=== PATIENT | male | born 1990 | race Caucasian/White ===

== ENCOUNTER 2017-10-04 23:36 | Emergency (ER) | payer OTHER ==
[2017-10-04] MEDS ORDERED: SODIUM CHLORIDE 1,000 ML IV STA (23:44)
[2017-10-04 23:51] VITALS: BP 129/73; PULSE 102; TEMP 98.6; BMI 28.1
[2017-10-04] MEDS ORDERED: ONDANSETRON 4 MG/2 ML VIAL IVPB ONE (23:54)
[2017-10-05 00:22] LABS: BASOPHIL 0.8 % (0-2.0); EOSINOPHIL 2.8 % (0-4.5); MCH 30.2 pg (25.7-33.7); MCHC 33.5 g/dl (32.0-35.9); MEAN CELL VOLUME 90.3 fl (80-96); MEAN PLT VOLUME 8.3 fl (7.5-11.1); NEUTROPHILS 57.7 % (42.8-82.8); PLATELET COUNT 267 K/MM3 (134-434); WHITE BLOOD COUNT 8.6 K/mm3 (4.0-10.0)
[2017-10-05] MEDS ORDERED: ONDANSETRON 4 MG/2 ML VIAL ONE (00:35)
[2017-10-05 00:47] LABS: ALBUMIN 4.2 g/dl (3.4-5.0); ANION GAP 11 (8-16); CALCIUM 8.5 mg/dL (8.5-10.1); CO2 23 mmol/L (21-32); GLUCOSE,RANDOM 135 mg/dL (74-106); SGOT/AST 20 U/L (15-37); SGPT/ALT 45 U/L (12-78)
--- NOTE | 2017-10-05 00:48 | PDOC ---
History of Present Illness - General History Source: Patient, EMS, Friend Exam Limitations: Intoxication - History of Present Illness Initial Comments: 10/05/17 00:49 The patient is a 27 year old male, with no significant past medical history, who presents to the emergency department [facility] for alcohol intoxication. The patient reports he was at a holiday libertarian with his friends, where he had several drinks of vodka, followed by wine. Patient reports walking to the bathroom unsteadily, and his friend followed him. As per friend, patient passed out several times on the bathroom floor, but the friend was able to help him down. Patient denies any head trauma, changes in vision, or any other trauma. EMS was activated and during transport patient experienced several episodes of nausea and vomiting(non bloody/ non bilious), but denies any abdominal pain, diarrhea, or constipation. Patient denies any chest pain, shortness of breath, diaphoresis, or palpitations. He denies any fever or chills. Allergies: NKDA Past Surgical History: None reported Social History: Non smoker. No ETOH or recreational drug use. <Rafa Miranda - Last Filed: 10/05/17 00:49> - General History Source: Patient, EMS, Friend Exam Limitations: Intoxication <Ajay Ching - Last Filed: 10/05/17 02:48> <Teresa Navarro - Last Filed: 10/05/17 03:32> - General Chief Complaint: Alcohol intoxication Stated Complaint: INTOX Time Seen by Provider: 10/04/17 23:43 Past History <Rafa Miranda - Last Filed: 10/05/17 00:49> - Suicide/Smoking/Psychosocial Hx Smoking History: Unknown if ever smoked Have you smoked in the past 12 months: No Information on smoking cessation initiated: No Hx Alcohol Use: Yes Drug/Substance Use Hx: No <Ajay Ching - Last Filed: 10/05/17 02:48> <Teresa Navarro - Last Filed: 10/05/17 03:32> - Past Medical History Allergies/Adverse Reactions: Allergies Allergy/AdvReac Type Severity Reaction Status Date / Time No Allergy Information Allergy Verified 10/04/17 23:47 Available Home Medications: Ambulatory Orders Unobtainable [Unobtainable] 10/04/17 Review of Systems - Review of Systems Able to Perform ROS?: Yes Comments:: 10/05/17 00:49 GENERAL/CONSTITUTIONAL: Yes inebriated. No fever or chills. No weakness. HEAD, EYES, EARS, NOSE AND THROAT: No change in vision. No ear pain or discharge. No sore throat. CARDIOVASCULAR: No chest pain or shortness of breath. RESPIRATORY: No cough, wheezing, or hemoptysis. GASTROINTESTINAL: Yes nausea, vomiting. No diarrhea or constipation. GENITOURINARY: No dysuria, frequency, or change in urination. MUSCULOSKELETAL: No joint or muscle swelling or pain. No neck or back pain. SKIN: No rash NEUROLOGIC: Yes loss of consciousness. No headache, vertigo, or change in strength/sensation. ENDOCRINE: No increased thirst. No abnormal weight change. HEMATOLOGIC/LYMPHATIC: No anemia, easy bleeding, or history of blood clots. ALLERGIC/IMMUNOLOGIC: No hives or skin allergy. <Nitza Mirandaomilsblair - Last Filed: 10/05/17 00:49> *Physical Exam - Vital Signs Last Vital Signs Temp Pulse Resp BP Pulse Ox 98.6 F 102 H 16 129/73 93 L 10/04/17 23:47 10/04/17 23:47 10/04/17 23:47 10/04/17 23:47 10/04/17 23:47 - Physical Exam Comments: 10/05/17 00:50 GENERAL: Patient is awake and able to answer yes or no questions. Appears intoxicated. HEAD: No signs of trauma EYES: PERRLA, EOMI, sclera anicteric, conjunctiva clear ENT: Auricles normal inspection, hearing grossly normal, nares patent, oropharynx clear without exudates. Moist mucosa NECK: Normal ROM, supple, no lymphadenopathy, JVD, or masses LUNGS: Breath sounds equal, clear to auscultation bilaterally. No wheezes, and no crackles HEART: Regular rate and rhythm, normal S1 and S2, no murmurs, rubs or gallops ABDOMEN: Soft, nontender, normoactive bowel sounds. No guarding, no rebound. No masses EXTREMITIES: Normal range of motion, no edema. No clubbing or cyanosis. No cords, erythema, or tenderness NEUROLOGICAL: Cranial nerves II through XII grossly intact. SKIN: Warm, Dry, normal turgor, no rashes or lesions noted. <Rafa Miranda - Last Filed: 10/05/17 00:49> - Vital Signs Last Vital Signs Temp Pulse Resp BP Pulse Ox 98.6 F 102 H 16 129/73 93 L 10/04/17 23:47 10/04/17 23:47 10/04/17 23:47 10/04/17 23:47 10/04/17 23:47 <Ajay Ching - Last Filed: 10/05/17 02:48> - Vital Signs Last Vital Signs Temp Pulse Resp BP Pulse Ox 98.6 F 102 H 16 129/73 93 L 10/04/17 23:47 10/04/17 23:47 10/04/17 23:47 10/04/17 23:47 10/04/17 23:47 <Teresa Navarro - Last Filed: 10/05/17 03:32> ED Treatment Course - LABORATORY CBC & Chemistry Diagram: 10/05/17 00:00 10/05/17 00:00 - ADDITIONAL ORDERS Additional order review: Laboratory Results 10/05/17 00:00 Alcohol, Quantitative 233.9 H* 10/05/17 00:00 RBC 4.99 MCV 90.3 MCHC 33.5 RDW 13.0 MPV 8.3 Neutrophils % 57.7 Lymphocytes % 25.5 Monocytes % 13.2 H Eosinophils % 2.8 Basophils % 0.8 - Medications Given in the ED: ED Medications Discontinued Medications Generic Name Dose Route Start Last Admin Trade Name Freq PRN Reason Stop Dose Admin Sodium Chloride 1,000 mls @ 1,000 mls/hr 10/04/17 23:44 10/05/17 00:34 Normal Saline - IV 10/05/17 00:43 1,000 mls/hr ASDIR STA Administration Ondansetron HCl 4 mg 10/04/17 23:54 10/05/17 00:34 Zofran Injection IVPB 10/04/17 23:55 4 mg ONCE ONE Administration <Rafa Miranda - Last Filed: 10/05/17 00:49> - LABORATORY CBC & Chemistry Diagram: 10/05/17 00:00 10/05/17 00:00 - ADDITIONAL ORDERS Additional order review: 10/05/17 00:00 RBC 4.99 MCV 90.3 MCHC 33.5 RDW 13.0 MPV 8.3 Neutrophils % 57.7 Lymphocytes % 25.5 Monocytes % 13.2 H Eosinophils % 2.8 Basophils % 0.8 - Medications Given in the ED: ED Medications Discontinued Medications Generic Name Dose Route Start Last Admin Trade Name Emerson PRN Reason Stop Dose Admin Sodium Chloride 1,000 mls @ 1,000 mls/hr 10/04/17 23:44 10/05/17 00:34 Normal Saline - IV 10/05/17 00:43 1,000 mls/hr ASDIR STA Administration Ondansetron HCl 4 mg 10/04/17 23:54 10/05/17 00:34 Zofran Injection IVPB 10/04/17 23:55 4 mg ONCE ONE Administration <Ajay Ching - Last Filed: 10/05/17 02:48> - LABORATORY CBC & Chemistry Diagram: 10/05/17 00:00 10/05/17 00:00 - ADDITIONAL ORDERS Additional order review: Laboratory Results 10/05/17 10/05/17 00:00 00:00 Sodium 137 Potassium 3.4 L Chloride 103 Carbon Dioxide 23 Anion Gap 11 BUN 13 Creatinine 1.0 Creat Clearance w eGFR > 60 Random Glucose 135 H Calcium 8.5 Total Bilirubin 0.8 AST 20 ALT 45 Alkaline Phosphatase 93 Total Protein 7.6 Albumin 4.2 Lipase 111 Alcohol, Quantitative 233.9 H* 10/05/17 00:00 RBC 4.99 MCV 90.3 MCHC 33.5 RDW 13.0 MPV 8.3 Neutrophils % 57.7 Lymphocytes % 25.5 Monocytes % 13.2 H Eosinophils % 2.8 Basophils % 0.8 - Medications Given in the ED: ED Medications Discontinued Medications Generic Name Dose Route Start Last Admin Trade Name Emerson PRN Reason Stop Dose Admin Sodium Chloride 1,000 mls @ 1,000 mls/hr 10/04/17 23:44 10/05/17 00:34 Normal Saline - IV 10/05/17 00:43 1,000 mls/hr ASDIR STA Administration Ondansetron HCl 4 mg 10/04/17 23:54 10/05/17 00:34 Zofran Injection IVPB 10/04/17 23:55 4 mg ONCE ONE Administration <Teresa Navarro - Last Filed: 10/05/17 03:32> Medical Decision Making - Medical Decision Making 10/05/17 00:44 A portion of this note was documented by scribe services under my direction. I have reviewed the details of the note, within reason, and agree with the documentation with the following case summary and management plan written by me. Patient treated in the ED. Nursing notes are reviewed and incorporated into the medical decision-making. Vital signs reviewed. Peripheral IV access obtained by the nurse, laboratory studies are drawn and sent, reviewed and interpreted by myself. Vital Signs Temp Pulse Resp BP Pulse Ox 98.6 F 102 H 16 129/73 93 L 10/04/17 23:47 10/04/17 23:47 10/04/17 23:47 10/04/17 23:47 10/04/17 23:47 27-year-old male with no past mental history presents immersed department by EMS for alcohol intoxication. Patient was brought in by a friend. The patient was at a holiday libertarian and had mixed vodka with alcohol and was vomiting in the bathroom. No head trauma or injury. Patient was having multiple episodes of vomiting and EMS was activated. Friend denied any witnessed injuries. Patient ED has no complaints reportedly felt nauseous. Stated he drank a significant amount BUT denies other ingestions. The patient is most certainly intoxicated likely secondary to alcohol. We'll obtain labs including alcohol level, observe patient and allow him to sober up. Once the patient is sober and is workup is unremarkable, patient can be discharged home with his friend. 10/05/17 01:01 CBC, BMP 10/05/17 00:00 10/05/17 00:00 CMP Sodium 137 mmol/L (136-145) 10/05/17 00:00 Potassium 3.4 mmol/L (3.5-5.1) L 10/05/17 00:00 Chloride 103 mmol/L (98-107) 10/05/17 00:00 Carbon Dioxide 23 mmol/L (21-32) 10/05/17 00:00 Anion Gap 11 (8-16) 10/05/17 00:00 BUN 13 mg/dL (7-18) 10/05/17 00:00 Creatinine 1.0 mg/dL (0.7-1.3) 10/05/17 00:00 Creat Clearance w eGFR > 60 (>60) 10/05/17 00:00 Random Glucose 135 mg/dL (74-106) H 10/05/17 00:00 Calcium 8.5 mg/dL (8.5-10.1) 10/05/17 00:00 Total Bilirubin 0.8 mg/dL (0.2-1.0) 10/05/17 00:00 AST 20 U/L (15-37) 10/05/17 00:00 ALT 45 U/L (12-78) 10/05/17 00:00 Alkaline Phosphatase 93 U/L (45-117) 10/05/17 00:00 Total Protein 7.6 g/dl (6.4-8.2) 10/05/17 00:00 Albumin 4.2 g/dl (3.4-5.0) 10/05/17 00:00 Lipase 111 U/L (73-393) 10/05/17 00:00 Alcohol level 233. 10/05/17 02:48 Pt signed out to Dr. Navarro for further management and disposition. <Ajay Ching - Last Filed: 10/05/17 02:48> *DC/Admit/Observation/Transfer - Attestations Scribe Attestion: 10/05/17 00:50 Documentation prepared by Rafa Miranda, acting as medical sociologist for Ajay Ching MD. <Rafa Miranda - Last Filed: 10/05/17 00:49> <Ajay Ching - Last Filed: 10/05/17 02:48> - Discharge Dispostion Admit: No <Teresa Navarro - Last Filed: 10/05/17 03:32> Diagnosis at time of Disposition: Alcohol intoxication - Discharge Dispostion Disposition: HOME Condition at time of disposition: Improved - Patient Instructions Printed Discharge Instructions: DI for Alcohol Abuse, True or False: Mixing Different Types of Alcohol Increases Your Risk of Get
[2017-10-05 00:49] LABS: ALK PHOS 93 U/L (45-117); BILIRUBIN,TOTAL 0.8 mg/dL (0.2-1.0); TOT PROT 7.6 g/dl (6.4-8.2)
== END 2017-10-05 04:19 | disposition home or self-care (01) ==
LOC: JER 23:36
PROC: 3E0337Z Introduction of Electrolytic and Water Balance Substance into Peripheral Vein, Percutaneous Approach (ICD-10-PCS; principal; 2017-10-04)
PROC: 3E033GC Introduction of Other Therapeutic Substance into Peripheral Vein, Percutaneous Approach (ICD-10-PCS; 2017-10-04)
DX: F10.120 Alcohol abuse with intoxication, uncomplicated (principal); Y90.7 Blood alcohol level of 200-239 mg/100 ml
CPT/HCPCS: 36415; 80053; 80307; 83690; 85025; 99282-25